=== PATIENT | female | born 1990 | race African-American/Black ===

== ENCOUNTER 2017-03-02 14:16 | Emergency (ER) | payer SELFPAY ==
[~2017-03-02] VITALS: Ht 172.7 cm; Wt 70.3 kg
--- NOTE | 2017-03-02 15:21 | PHYS DOC ---
Adult General Chief Complaint Chief Complaint: FOOT INJURY PAIN [facility] HPI Patient is a 26 year old female with history of hypertension who presents today with right foot drop the suddenly began yesterday afternoon when she was sitting down watching TV. Patient states she stood up from sitting position and realized her flip-flop fell off her foot. Patient states since yesterday she is noted right foot drops whenever she tries to lift it up. She states she cannot even flex it. Patient denies any trauma. Denies any back pain. Denies any pain radiating to her right lower extremity. Denies any injuries. Denies any foot pain. Review of Systems Review of Systems Constitutional: Denies fever or chills [] Eyes: Denies change in visual acuity, redness, or eye pain [] HENT: Denies nasal congestion or sore throat [] Respiratory: Denies cough or shortness of breath [] Cardiovascular: No additional information not addressed in HPI [] GI: Denies abdominal pain, nausea, vomiting, bloody stools or diarrhea [] : Denies dysuria or hematuria [] Musculoskeletal: Right foot drop Integument: Denies rash or skin lesions [] Neurologic: Denies headache, focal weakness or sensory changes [] Endocrine: Denies polyuria or polydipsia [] Physical Exam Physical Exam Constitutional: Well developed, well nourished, no acute distress, non-toxic appearance. [] HENT: Normocephalic, atraumatic, bilateral external ears normal, oropharynx moist, no oral exudates, nose normal. [] Eyes: PERRLA, EOMI, conjunctiva normal, no discharge. [] Neck: Normal range of motion, no tenderness, supple, no stridor. [] Cardiovascular:Heart rate regular rhythm, no murmur [] Lungs & Thorax: Bilateral breath sounds clear to auscultation [] Abdomen: Bowel sounds normal, soft, no tenderness, no masses, no pulsatile masses. [] Skin: Warm, dry, no erythema, no rash. [] Back: No tenderness, no CVA tenderness. [] Extremities: Right lower extremity with no obvious deformity. No tenderness on the right foot. No swelling on the right lower extremity. Negative Homans sign to the right lower extremity. Patient able to separate but sharp and dull sensation to the right foot. No tenderness to the foot, no cyanosis, no clubbing , no edema. Foot drop noted on the right foot on exam. Patient has to lift her foot by lifting her knee. Neurologic: Alert and oriented X 3, normal motor function, normal sensory function, no focal deficits noted. [] Psychologic: Affect normal, judgement normal, mood normal. [] EKG EKG [] Radiology/Procedures Radiology/Procedures [] Course & Med Decision Making Course & Med Decision Making Pertinent Labs and Imaging studies reviewed. (See chart for details) Patient is in the ED with right foot drop that began yesterday, no known injury , no back pain no headache nose reason surgeries. No swelling to the right lower extremity. She does have obvious right foot drop on physical exam. I spoke to patient at length. Informed patient that many causes of the foot drop. Neurology follow-up visit is highly recommended plan. Recommended over-the- counter foot drop splint in the mean time. Consulted with Dr. Oconnell. Dragon Disclaimer Dragon Disclaimer This electronic medical record was generated, in whole or in part, using a voice recognition dictation system. Departure Departure Impression: Primary Impression: Foot drop, right Disposition: 01 HOME, SELF-CARE Condition: STABLE Referrals: LEANA PARRISH MD Call the provided neurologist tomorrow and follow up as soon as you can. Patient Instructions: Musculoskeletal Pain Additional Instructions: You were seen for right foot drop. There are many reasons for right foot drop including medical conditions like MS, back problems, nerve damage. We highly recommend you should contact the provided neurologist first thing tomorrow morning and set up a follow-up appointment. Also contact your primary care doctor as soon as you can and have them follow-up so that they can start working you up for the cause of this foot drop. Buy [id number] foot drop splint that duyen for you and put it on to help reduce the drop effect. MATHIEU CASTILLO APRN Mar 02, 2017 15:21
[2017-03-02 15:25] VITALS: BP 155/87
== END 2017-03-02 15:30 | disposition home or self-care (01) ==
LOC: ER 14:16
DX: M21.371 Foot drop, right foot (principal); I10 Essential (primary) hypertension
CPT/HCPCS: 99281